=== PATIENT | female | born 1980 | race Caucasian/White ===

== ENCOUNTER 2016-12-03 10:48 | Emergency (ER) | payer MEDICARE, OTHER ==
[~2016-12-03] VITALS: Ht 172.7 cm; Wt 99.1 kg
[~2016-12-03 10:48] MED LIST: LABE100 PO; PERC5TAB12 PO
[2016-12-03 10:51] VITALS: BP 162/94; PULSE 76; RESP 19; TEMP 98.4; O2SAT 94
[2016-12-03 11:07] VITALS: O2SAT 95
[2016-12-03 11:08] VITALS: BP 158/98; PULSE 79; RESP 20; O2SAT 95
[2016-12-03] MEDS ORDERED: ALBU0.08 NEB (11:08)
[2016-12-03] MEDS ORDERED: LISI40TA PO (11:08)
[2016-12-03] MEDS ORDERED: CITA40TA4 PO (11:08)
[2016-12-03] MEDS ORDERED: TIZA4TAB PO (11:08)
[2016-12-03] MEDS ORDERED: BUSP30TA PO (11:08)
[2016-12-03] MEDS ORDERED: METH40TA PO (11:08)
[2016-12-03] MEDS ORDERED: SYMB160A INH (11:08)
[2016-12-03] MEDS ORDERED: ALBUAER3 INH ×2 (11:08→13:10)
[2016-12-03] MEDS ORDERED: GABA300C5 PO (11:08)
[2016-12-03] MEDS ORDERED: BUPR150T3 PO (11:08)
[2016-12-03] MEDS: RESP: ALBUTEROL 2.5 MG/IPRATROPIUM 0.5 MG NEB (SCH) INH (11:14)
[2016-12-03] MEDS ORDERED: methylPREDNISolone SOD SUCC 125 MG/2 ML VIAL IVP ONE (11:15)
[2016-12-03] MEDS ORDERED: MAGNESIUM SULFATE 1 GM PREMIX 100 ML IV ONE (11:15)
[2016-12-03] MEDS ORDERED: SODIUM CHLOR 0.9% 1000 ML INJ 1,000 ML IV ONE (11:15)
[2016-12-03] MEDS ORDERED: SODIUM CHLORIDE 0.9% FLUSH 10 ML FLUSH IVF PRN (11:15)
--- NOTE | 2016-12-03 11:20 | PD ---
HPI Chief Complaint: Respiratory Symptoms Time Seen by Provider: 11:01 Travel History International Travel<30 days: No Contact w/Intl Traveler<30days: No Traveled to known affect area: No History of Present Illness HPI Patient is a 36-year-old female with history of asthma and hypertension, presents to the emergency room with complaints of asthma exacerbation. Patient reports that since , she has been feeling short of breath. Patient reports that she has been wheezing, reports that she has been having very hard time catching her breath. Patient did try using her pro-air inhaler with no relief of symptoms. Patient reports that she has had asthma since she was a child, reports that she was hospitalized last year for asthma exacerbation. Reports that she is coughing, reports cough is nonproductive. Patient with no fevers or chills. Patient with no chest pain or shortness breath at this time. Patient is not a smoker. PFSH Past Medical History Arthritis: Yes Asthma: Yes Depression: Yes Diminished Hearing: No Fibromyalgia: Yes GERD: Yes Hypertension: Yes Musculoskeletal: Yes (DDD, C5&6 HERINATED DISCS, SCOLOSIS) Influenza Vaccination: Yes ?: Not LMP: 1 MONTH Past Surgical History Other Surgery: Yes (SPINAL FUSION AND HESTER RODS) Social History Alcohol Use: No Tobacco Use: Yes (/ PPD) Substance Use: No Allergies-Medications (Allergen,Severity, Reaction): Coded Allergies: Lyrica (Verified Allergy, Severe, EDEMA, 12/03/16) Morphine (Verified Allergy, Intermediate, Rash, 12/03/16) Bystolic (Verified Allergy, Mild, EDEMA, 12/03/16) Fentanyl (Verified Allergy, Mild, Rash, 12/03/16) Latex (Verified Allergy, Mild, Rash, 12/03/16) Reported Meds & Prescriptions Reported Meds & Active Scripts Active Prednisone 20 Mg Tab 20 Mg PO BID 5 Days Proair Hfa 8.5 GM Inh (Albuterol Sulfate) 90 Mcg/Act Aer 2 Puff INH Q4-6H PRN 108 mcg/actuation Albuterol Neb (Albuterol Sulfate) 2.5 Mg/0.5 Ml Neb 2.5 Mg NEB Q6HR NEB PRN 30 Days Note: The Albuterol Sulfate Inhalation Solution is concentrated and must be diluted. Read complete instructions carefully before using. Reported Albuterol Neb (Albuterol Sulfate) 2.5 Mg/3 Ml Neb 2.5 Mg NEB Q4HR NEB PRN Symbicort Inh (Budesonide/Formoterol Fumarate) 160-4.5 Mcg/Act Aero 1 Puff INH Q12HR Proair Hfa 8.5 GM Inh (Albuterol Sulfate) 90 Mcg/Act Aer 2 Puff INH Q4-6H PRN 108 mcg/actuation Methadone (Methadone HCl) 40 Mg Tab 60 Mg PO DAILY Tizanidine (Tizanidine HCl) 4 Mg Tab 4 Mg PO TID Gabapentin 300 Mg Cap 300 Mg PO TID Buspirone (Buspirone HCl) 30 Mg Tab 30 Mg PO BID Bupropion HCl ER 24 HR (Bupropion HCl) 150 Mg Tab 150 Mg PO DAILY Citalopram (Citalopram Hydrobromide) 40 Mg Tab 40 Mg PO HS Lisinopril 40 Mg Tab 40 Mg PO BID Review of Systems General / Constitutional: No: Fever, Chills Eyes: No: Visual changes HENT: No: Headaches Cardiovascular: No: Chest Pain or Discomfort, Palpitations, Irregular Rhythm Respiratory: Positive: Cough, Shortness of Breath, Wheezing Gastrointestinal: No: Abdominal Pain Genitourinary: No: Dysuria Musculoskeletal: No: Pain Skin: No Rash Neurologic: No: Weakness Psychiatric: No: Depression Endocrine: No: Polydipsia Hematologic/Lymphatic: No: Easy Bruising Physical Exam Narrative GENERAL: Mild distress SKIN: Focused skin assessment warm/dry. HEAD: Atraumatic. Normocephalic. EYES: Pupils equal and round. No scleral icterus. No injection or drainage. ENT: No nasal bleeding or discharge. Mucous membranes pink and moist. NECK: Trachea midline. No JVD. CARDIOVASCULAR: Regular rate and rhythm. No murmur appreciated. RESPIRATORY: No accessory muscle use. Patient with scattered wheezing throughout upper and lower lobes of the lungs GASTROINTESTINAL: Abdomen soft, non-tender, nondistended. Hepatic and splenic margins not palpable. MUSCULOSKELETAL: No obvious deformities. No clubbing. No cyanosis. No edema. NEUROLOGICAL: Awake and alert. No obvious cranial nerve deficits. Motor grossly within normal limits. Normal speech. PSYCHIATRIC: Appropriate mood and affect; insight and judgment normal. Data Data Last Documented VS Vital Signs Date Time Temp Pulse Resp B/P Pulse Ox O2 Delivery O2 Flow Rate FiO2 12/03/16 12:37 88 18 167/86 96 Room Air 12/03/16 10:51 98.4 Orders Complete Blood Count With Diff (12/03/16 11:05) Basic Metabolic Panel (Bmp) (12/03/16 11:05) Iv Access Insert/Monitor (12/03/16 11:05) Ecg Monitoring (12/03/16 11:05) Oximetry (12/03/16 11:05) Chest, Single Ap (12/03/16 11:05) Sodium Chloride 0.9% Flush (Ns Flush) (12/03/16 11:15) Methylprednisolone So Succ Inj (Solumedr (12/03/16 11:15) Albuterol-Ipratropium Neb (Duoneb Neb) (12/03/16 11:15) Ed Urine Pregnancytest Poc (12/03/16 11:05) Sodium Chlor 0.9% 1000 Ml Inj (Ns 1000 M (12/03/16 11:15) Magnesium Sulfate 1 Gm Premix (Magnesium (12/03/16 11:15) Ondansetron Inj (Zofran Inj) (12/03/16 11:45) Albuterol Neb (Albuterol Neb) (12/03/16 12:30) Labs Laboratory Tests Test 12/03/16 11:18 White Blood Count 7.4 TH/MM3 Red Blood Count 5.05 MIL/MM3 Hemoglobin 14.7 GM/DL Hematocrit 44.0 % Mean Corpuscular Volume 87.2 FL Mean Corpuscular Hemoglobin 29.1 PG Mean Corpuscular Hemoglobin 33.4 % Concent Red Cell Distribution Width 13.2 % Platelet Count 287 TH/MM3 Mean Platelet Volume 7.7 FL Neutrophils (%) (Auto) 71.2 % Lymphocytes (%) (Auto) 17.3 % Monocytes (%) (Auto) 6.8 % Eosinophils (%) (Auto) 1.4 % Basophils (%) (Auto) 3.3 % Neutrophils # (Auto) 5.3 TH/MM3 Lymphocytes # (Auto) 1.3 TH/MM3 Monocytes # (Auto) 0.5 TH/MM3 Eosinophils # (Auto) 0.1 TH/MM3 Basophils # (Auto) 0.2 TH/MM3 CBC Comment DIFF FINAL Differential Comment Sodium Level 140 MEQ/L Potassium Level 3.5 MEQ/L Chloride Level 105 MEQ/L Carbon Dioxide Level 26.6 MEQ/L Anion Gap 8 MEQ/L Blood Urea Nitrogen 8 MG/DL Creatinine 0.71 MG/DL Estimat Glomerular Filtration 93 ML/MIN Rate Random Glucose 104 MG/DL Calcium Level 8.9 MG/DL MDM Medical Decision Making Medical Screen Exam Complete: Yes Emergency Medical Condition: Yes Interpretation(s) Vital Signs Date Time Temp Pulse Resp B/P Pulse Ox O2 Delivery O2 Flow Rate FiO2 12/03/16 11:08 79 20 158/98 95 Room Air 12/03/16 11:07 95 Room Air 12/03/16 11:06 20 95 Room Air 12/03/16 10:51 98.4 76 19 162/94 94 Differential Diagnosis Asthma exacerbation, pneumonia, influenza, PE, pneumothorax Narrative Course Patient is a 36-year-old female who presents to emergency room with complaints of asthma exacerbation. Patient reports that she has a long-standing history of asthma since she was a child, patient reports that since , she has been feeling short of breath and has been wheezing. Patient reports that she has been using her Pro Air puffer with no relief of symptoms. On evaluation, patient is wheezing diffusely, vital signs are stable at this time. Lab work ordered as well as x-ray chest to evaluate for possible pneumonia, pneumothorax. IV steroids as well as neb treatments ordered for patient. 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 Vital Signs Date Time Temp Pulse Resp B/P Pulse Ox O2 Delivery O2 Flow Rate FiO2 12/03/16 12:37 88 18 167/86 96 Room Air 12/03/16 11:08 79 20 158/98 95 Room Air 12/03/16 11:07 95 Room Air 12/03/16 11:06 20 95 Room Air 12/03/16 10:51 98.4 76 19 162/94 94 Laboratory Tests Test 12/03/16 11:18 White Blood Count 7.4 TH/MM3 (4.0-11.0) Red Blood Count 5.05 MIL/MM3 (4.00-5.30) Hemoglobin 14.7 GM/DL (11.6-15.3) Hematocrit 44.0 % (35.0-46.0) Mean Corpuscular Volume 87.2 FL (80.0-100.0) Mean Corpuscular Hemoglobin 29.1 PG (27.0-34.0) Mean Corpuscular Hemoglobin 33.4 % Concent (32.0-36.0) Red Cell Distribution Width 13.2 % (11.6-17.2) Platelet Count 287 TH/MM3 (150-450) Mean Platelet Volume 7.7 FL (7.0-11.0) Neutrophils (%) (Auto) 71.2 % (16.0-70.0) Lymphocytes (%) (Auto) 17.3 % (9.0-44.0) Monocytes (%) (Auto) 6.8 % (0.0-8.0) Eosinophils (%) (Auto) 1.4 % (0.0-4.0) Basophils (%) (Auto) 3.3 % (0.0-2.0) Neutrophils # (Auto) 5.3 TH/MM3 (1.8-7.7) Lymphocytes # (Auto) 1.3 TH/MM3 (1.0-4.8) Monocytes # (Auto) 0.5 TH/MM3 (0-0.9) Eosinophils # (Auto) 0.1 TH/MM3 (0-0.4) Basophils # (Auto) 0.2 TH/MM3 (0-0.2) CBC Comment DIFF FINAL Differential Comment Sodium Level 140 MEQ/L (136-145) Potassium Level 3.5 MEQ/L (3.5-5.1) Chloride Level 105 MEQ/L (98-107) Carbon Dioxide Level 26.6 MEQ/L (21.0-32.0) Anion Gap 8 MEQ/L (5-15) Blood Urea Nitrogen 8 MG/DL (7-18) Creatinine 0.71 MG/DL (0.50-1.00) Estimat Glomerular Filtration 93 ML/MIN (>89) Rate Random Glucose 104 MG/DL (74-106) Calcium Level 8.9 MG/DL (8.5-10.1) Last Impressions Chest X-Ray 12/03/16 1105 Signed Impressions: Service Date/Time: Saturday, December 03, 2016 11:13 - CONCLUSION: No acute disease. You Rice MD Patient re-evaluated. Patient is feeling much better at this time. I reviewed all labs and studies with her. She will follow up up with her pcp and will return to ER as needed. Signs and symptoms of when to return to ER was reviewed with patient in detail Diagnosis Primary Impression: Asthma exacerbation Patient Instructions: General Instructions Additional Instructions: Please follow-up with your primary care doctor in 2-3 days Return to the emergency room if symptoms worsen or progress Return to the emergency room as needed Med/Other Pt SpecificInfo: Prescription(s) given Scripts Prednisone 20 Mg Tab20 Mg PO BID 5 Days Ref 0 Prov:Erin Espinal DO 12/03/16 Albuterol 8.5 GM Inh (Proair Hfa 8.5 GM Inh)90 Mcg/Act Aer2 Puff INH Q4-6H PRN ( SHORTNESS OF BREATH) #1 INHALER Ref 0 108 mcg/actuation Prov:Erin Espinal DO 12/03/16 Albuterol Neb 2.5 Mg/0.5 Ml Neb2.5 Mg NEB Q6HR NEB PRN (WHEEZING) 30 Days Note: The Albuterol Sulfate Inhalation Solution is concentrated and must be diluted. Read complete instructions carefully before using. Prov:Erin Espinal DO 12/03/16 Disposition: 01 DISCHARGE HOME Condition: Stable Erin Espinal DO December 03, 2016 11:20
--- NOTE | 2016-12-03 11:23 | RADHPO ---
EXAM DATE/TIME: 12/03/2016 11:13 [facility] COMPARISON: No previous studies available for comparison. INDICATIONS : Short of breath MEDICAL HISTORY : Hypertension. asthma SURGICAL HISTORY : Spinal ENCOUNTER: Initial ACUITY: 4 - 6 days PAIN SCORE: 0/10 LOCATION: Bilateral chest FINDINGS: A single view of the chest demonstrates the lungs to be symmetrically aerated without evidence of mas s, infiltrate or effusion. The cardiomediastinal contours are unremarkable. Osseous structures are intact. There are posterior spinal fixation rods in place. CONCLUSION: No acute disease. You Rice MD on December 03, 2016 at 11:20 Board Certified Radiologist. This report was verified electronically.
[2016-12-03 11:38] LABS: AUTOMATED NEUTROPHIL # 5.3 TH/MM3 (1.8-7.7); BASOPHIL # 0.2 TH/MM3 (0-0.2); BASOPHIL % 3.3 % (0.0-2.0); EOSINOPHIL # 0.1 TH/MM3 (0-0.4); EOSINOPHIL % 1.4 % (0.0-4.0); HEMO FLAGS DIFF FINAL; LYMPH % 17.3 % (9.0-44.0); LYMPHOCYTE # 1.3 TH/MM3 (1.0-4.8); MEAN CELL VOLUME 87.2 FL (80.0-100.0); MEAN CORPUSCULAR HEMOGLOBIN 29.1 PG (27.0-34.0); MEAN CORPUSCULAR HGB CONC 33.4 % (32.0-36.0); MONO % 6.8 % (0.0-8.0); NEUT % 71.2 % (16.0-70.0); PLATELET COUNT 287 TH/MM3 (150-450); RED BLOOD COUNT 5.05 MIL/MM3 (4.00-5.30); RED CELL DISTRIBUTION WIDTH 13.2 % (11.6-17.2); WHITE BLOOD COUNT 7.4 TH/MM3 (4.0-11.0)
[2016-12-03] MEDS ORDERED: ONDANSETRON HCL 4 MG/2 ML VIAL IV PUSH ONE (11:45)
[2016-12-03 11:47] LABS: POTASSIUM 3.5 MEQ/L (3.5-5.1)
[2016-12-03 11:51] LABS: BICARBONATE 26.6 MEQ/L (21.0-32.0)
[2016-12-03] MEDS ORDERED: RESP: ALBUTEROL 2.5 MG/3 ML NEB (SCH) INH ONE (12:30)
[2016-12-03 12:37] VITALS: BP 167/86; PULSE 88; RESP 18; O2SAT 96
[2016-12-03] MEDS ORDERED: ALBU.5I NEB (13:10)
[2016-12-03] MEDS ORDERED: PRED20 PO (13:10)
== END 2016-12-03 13:19 | disposition home or self-care (01) ==
LOC: PHED 10:48
DX: J45.901 Unspecified asthma with (acute) exacerbation (principal); I10 Essential (primary) hypertension; M79.7 Fibromyalgia; K21.9 Gastro-esophageal reflux disease without esophagitis; F17.210 Nicotine dependence, cigarettes, uncomplicated
CPT/HCPCS: 71010; 80048; 85025; 94640; 94664; 96365; 96375; 99283; J2405; J2930; J3475; J7030; J7613